=== PATIENT | female | born 1950 | race Caucasian/White ===

== ENCOUNTER 2017-07-02 09:53 | Day surgery (SDC) | payer MEDICARE, OTHER ==
[~2017-07-02] VITALS: Ht 152.4 cm; Wt 46.6 kg
[~2017-07-02 09:53] MED LIST: ALEN70; B Complete1 EACH PO; CALCAVITDA; CALCIUM 1,0001 EACH PO; CHOL10002; CLIMARA; ESTR.1TPBW; Fergon240 M1; Ferrous Fumara324 MG PO; GARCINIA CAMBO1 EACH PO; GAVILAX17 GM PO; Hair, Skin & N1 EACH PO; LATA.005SO BOTHEYES; LAXA CLEAR1530 GM PO; LISI20 PO; LISI5 PO; MAGOXI400 PO; Magnesium200 MG PO; Norco 10-325 T1 EACH PO; Nortriptyline H25 MG PO; OMEP20ER PO; Omeprazole20 M1 PO; PROACE100 PO; PROACE50 PO; Prinivil10 MG PO; TRIA80TC TOP; VITB100
[2017-07-04] MEDS ORDERED: Forteo2.4 ML (09:21)
[2017-07-04] MEDS ORDERED: OXYB5 PO (09:22)
[2018-05-16] MEDS ORDERED: OMEPRAZOLE MAGN20 MG PO (12:13)
[2018-05-16] MEDS ORDERED: Vitamin B Comple1 EA PO (12:13)
[2018-05-16] MEDS ORDERED: NAPR500 PO (12:15)
[2018-05-16] MEDS ORDERED: Estradiol1 EAC5 TD (12:19)
[2018-05-16] MEDS ORDERED: Forteo2.4 ML SC (12:21)
[2018-05-16] MEDS ORDERED: TUMS PO (12:23)
[2018-05-17] MEDS ORDERED: RHOPRESSA2.5 ML DT (11:47)
== END 2017-07-02 12:45 | disposition home or self-care (01) ==
LOC: ORSCSDS 09:53
PROVIDERS: Internal Medicine Gastroenterology
PROC: 0DB68ZX Excision of Stomach, Via Natural or Artificial Opening Endoscopic, Diagnostic (ICD-10-PCS; principal; 2017-07-02 11:15)
PROC: 0DB88ZX Excision of Small Intestine, Via Natural or Artificial Opening Endoscopic, Diagnostic (ICD-10-PCS; principal; 2017-07-02 11:15)
PROC: 0DBM8ZX Excision of Descending Colon, Via Natural or Artificial Opening Endoscopic, Diagnostic (ICD-10-PCS; principal; 2017-07-02 11:15)
PROC: 0D757ZZ Dilation of Esophagus, Via Natural or Artificial Opening (ICD-10-PCS; principal; 2017-07-02 11:15)
PROC: 0DB58ZX Excision of Esophagus, Via Natural or Artificial Opening Endoscopic, Diagnostic (ICD-10-PCS; principal; 2017-07-02 11:15)
DX: R13.14 Dysphagia, pharyngoesophageal phase (principal); K21.9 Gastro-esophageal reflux disease without esophagitis; K22.2 Esophageal obstruction; K31.7 Polyp of stomach and duodenum; Z12.11 Encounter for screening for malignant neoplasm of colon; D12.4 Benign neoplasm of descending colon; K57.30 Diverticulosis of large intestine without perforation or abscess without bleeding; Z87.891 Personal history of nicotine dependence; I10 Essential (primary) hypertension; Z79.899 Other long term (current) drug therapy
CPT/HCPCS: 88305; J7120

== ENCOUNTER 2017-07-10 06:29 | Day surgery (SDC) | payer MEDICARE, OTHER ==
[~2017-07-10] VITALS: Ht 157.5 cm; Wt 48.1 kg
[~2017-07-10 06:29] MED LIST changes: +Forteo2.4 ML; +OXYB5 PO
[2018-05-16] MEDS ORDERED: OMEPRAZOLE MAGN20 MG PO (12:13)
[2018-05-16] MEDS ORDERED: Vitamin B Comple1 EA PO (12:13)
[2018-05-16] MEDS ORDERED: NAPR500 PO (12:15)
[2018-05-16] MEDS ORDERED: Estradiol1 EAC5 TD (12:19)
[2018-05-16] MEDS ORDERED: Forteo2.4 ML SC (12:21)
[2018-05-16] MEDS ORDERED: TUMS PO (12:23)
[2018-05-17] MEDS ORDERED: RHOPRESSA2.5 ML DT (11:47)
== END 2017-07-10 08:57 | disposition home or self-care (01) ==
LOC: ORSCSDS 06:29
PROVIDERS: Ophthalmology
PROC: 08RK3JZ Replacement of Left Lens with Synthetic Substitute, Percutaneous Approach (ICD-10-PCS; principal; 2017-07-10 08:00)
DX: H25.12 Age-related nuclear cataract, left eye (principal)
CPT/HCPCS: J2250; J3010; V2632

== ENCOUNTER 2018-10-04 06:24 | Day surgery (SDC) | payer MEDICARE, OTHER ==
[~2018-10-04] VITALS: Ht 152.4 cm; Wt 53.5 kg
[~2018-10-04 06:24] MED LIST changes: +B Complex #11 EACH PO; +Calcium +D & M1 EACH PO; +Estradiol1 EAC5 TD; +Forteo2.4 ML SC; +MIRALAX17 GM PO; +NAPR500 PO; +NORT25 PO; +Naprosyn500 MG PO; +OMEPRAZOLE MAGN20 MG PO; +RHOPRESSA2.5 ML DT; +TUMS PO; +Vitamin B Comple1 EA PO
--- NOTE | 2018-10-04 07:38 | NUR ---
10/04/18 0738 Cipriano Duong 1ST IV ATTEMPT UNSUCCESSFUL, ORSC.BDK 2ND IV ATTEMPT UNSUCCESSFUL, ORSC.AXE 3RD IV ATTEMPT IN LAC SUCCESSFUL, ORSC.AXE
--- NOTE | 2018-10-04 08:53 | NUR ---
10/04/18 0853 Dorothea Jason PT TRANSFERRED MARC, SID INTO RECLINER. PT DENIES PAIN AND NAUSEA AT THIS TIME. PT TOLERATING APPLE JUICE WELL AND DENIES PO SNACKS. RN UPDATED SHANTA OF PT STATUS IN WAITING ROOM. SHANTA CHOOSES TO WAIT IN WAITING ROOM. PT AWARE AND STATES HE "DOESN'T LIKE HOSPITALS." ICE AND ELEVATION IMPLEMENTED IN SDU.
== END 2018-10-04 09:24 | disposition home or self-care (01) ==
LOC: ORSCSDS 06:24
PROVIDERS: Podiatrist Foot & Ankle Surgery
PROC: 0SPQ04Z Removal of Internal Fixation Device from Left Toe Phalangeal Joint, Open Approach (ICD-10-PCS; principal; 2018-10-04 07:30)
PROC: 0QSP04Z Reposition Left Metatarsal with Internal Fixation Device, Open Approach (ICD-10-PCS; principal; 2018-10-04 07:30)
PROC: 0SQQ0ZZ Repair Left Toe Phalangeal Joint, Open Approach (ICD-10-PCS; principal; 2018-10-04 07:30)
DX: M21.962 Unspecified acquired deformity of left lower leg (principal); T84.84XA Pain due to internal orthopedic prosthetic devices, implants and grafts, initial encounter; I10 Essential (primary) hypertension; Z87.891 Personal history of nicotine dependence; Z79.899 Other long term (current) drug therapy
CPT/HCPCS: C1713; C1769; J0330; J0690; J1100; J2250; J2405; J2704; J2765; J3010; J7120

== ENCOUNTER → 2019-04-01 | Outpatient (CLI) | payer MEDICARE, OTHER ==
[2019-04-01 10:23] LABS: Alanine Aminotransfer (ALT/SGP 16 U/L (12-78); Albumin, Blood 3.8 g/dL (3.4-5.0); Albumin/Globulin Ratio 1.3 (0.8-1.8); Alk Phos 82 U/L (50-136); Anion Gap 5 mmol/L (6-16); Aspartate Aminotrans (AST/SGOT 9 U/L (12-37); Bilirubin, Total 0.2 mg/dL (0.1-1.0); Blood Urea Nitrogen 27 mg/dL (8-24); Bun/Creatinine Ratio 39.9 (12.0-20.0); CO2, Blood 28 mmol/L (21-32); Calcium, Blood 8.8 mg/dL (8.5-10.1); Chloride, Blood 111 mmol/L (98-108); Creatinine, Blood 0.68 mg/dL (0.40-1.00); Globulin, Blood 2.9 g/dL (2.2-4.0); Glomerular Filtration Rate >60 (60-); Glucose, Blood 101 mg/dL (70-99); Potassium, Blood 4.2 mmol/L (3.5-5.5); Sodium, Blood 144 mmol/L (136-145); Total Protein, Blood 6.7 g/dL (6.4-8.2)
== END | disposition home or self-care (01) ==
LOC: LAB EV 09:49 → LAB SHORT 09:49
PROVIDERS: Internal Medicine Hematology & Oncology
DX: M85.80 Other specified disorders of bone density and structure, unspecified site (principal); R53.83 Other fatigue
CPT/HCPCS: 80053

== ENCOUNTER 2020-03-17 10:05 | Emergency (ER) | payer MEDICARE, OTHER ==
[~2020-03-17] VITALS: Ht 152.4 cm; Wt 53.1 kg
== END 2020-03-17 11:40 | disposition home or self-care (01) ==
LOC: ER 10:05
DX: M25.551 Pain in right hip (principal); G89.29 Other chronic pain; I10 Essential (primary) hypertension; K21.9 Gastro-esophageal reflux disease without esophagitis; Z88.6 Allergy status to analgesic agent; Z88.8 Allergy status to other drugs, medicaments and biological substances; Z79.899 Other long term (current) drug therapy; Z87.891 Personal history of nicotine dependence; W01.0XXA Fall on same level from slipping, tripping and stumbling without subsequent striking against object, initial encounter
CPT/HCPCS: 73502; 99283-25

== ENCOUNTER → 2020-03-31 | Outpatient (CLI) | payer MEDICARE, OTHER ==
[2020-03-31 10:15] LABS: Alanine Aminotransfer (ALT/SGP 21 U/L (12-78); Albumin, Blood 3.8 g/dL (3.4-5.0); Albumin/Globulin Ratio 1.3 (0.8-1.8); Alk Phos 82 U/L (50-136); Anion Gap 9 mmol/L (6-16); Aspartate Aminotrans (AST/SGOT 11 U/L (12-37); Bilirubin, Total 0.2 mg/dL (0.1-1.0); Blood Urea Nitrogen 27 mg/dL (8-24); Bun/Creatinine Ratio 44.6 (12.0-20.0); CO2, Blood 22 mmol/L (21-32); Calcium, Blood 8.8 mg/dL (8.5-10.1); Chloride, Blood 112 mmol/L (98-108); Creatinine, Blood 0.61 mg/dL (0.40-1.00); Globulin, Blood 2.9 g/dL (2.2-4.0); Glomerular Filtration Rate >60 (60-); Glucose, Blood 112 mg/dL (70-99); Phosphorus, Blood 3.3 mg/dL (2.5-4.9); Sodium, Blood 143 mmol/L (136-145); Total Protein, Blood 6.7 g/dL (6.4-8.2)
== END ==
LOC: OLS 09:44 → LAB SHORT 09:44
PROVIDERS: Internal Medicine Hematology & Oncology
DX: M81.8 Other osteoporosis without current pathological fracture (principal)
CPT/HCPCS: 80053; 84100

== ENCOUNTER → 2021-04-01 | Outpatient (CLI) | payer MEDICARE, OTHER ==
[2021-04-01 11:09] LABS: BASOPHILS ABSOLUTE AUTO 0.04 K/mm3 (0.00-0.23); BASOPHILS PERCENT AUTO 1 % (0-2); EOSINOPHILS ABSOLUTE AUTO 0.26 K/mm3 (0.00-0.68); EOSINOPHILS PERCENT AUTO 4 % (0-6); Hematocrit 34.1 % (33.0-51.0); IMMATURE GRAN ABSOLUTE AUTO 0.03 K/mm3 (0.00-0.10); IMMATURE GRAN PERCENT AUTO 1 % (0-1); LYMPHOCYTES ABSOLUTE AUTO 1.55 K/mm3 (0.84-5.20); LYMPHOCYTES PERCENT AUTO 26 % (21-46); MONOCYTES ABSOLUTE AUTO 0.56 K/mm3 (0.16-1.47); MONOCYTES PERCENT AUTO 9 % (4-13); Mean Corpuscular HGB 30.3 pg (26.0-34.0); Mean Corpuscular HGB Conc 32.3 g/dL (31.5-36.5); Mean Corpuscular Volume 94 fL (80-100); Mean Platelet Volume 10.7 fL (9.1-12.4); NEUTROPHILS ABSOLUTE AUTO 3.61 K/mm3 (1.96-9.15); NEUTROPHILS PERCENT AUTO 60 % (41-73); Platelet Count 254 K/mm3 (150-400); RDW Coefficient Variation 12.6 % (11.7-14.2); RDW Standard Deviation 43.2 fL (35.1-46.3); Red Blood Cell Count 3.63 M/mm3 (3.80-5.20); White Blood Cell Count 6.05 K/mm3 (4.00-11.30)
[2021-04-01 11:46] LABS: Alanine Aminotransfer (ALT/SGP 18 U/L (12-78); Albumin, Blood 3.4 g/dL (3.4-5.0); Albumin/Globulin Ratio 1.1 (0.8-1.8); Alk Phos 77 U/L (50-136); Anion Gap 5 mmol/L (6-16); Aspartate Aminotrans (AST/SGOT 16 U/L (12-37); Bilirubin, Total 0.2 mg/dL (0.1-1.0); Blood Urea Nitrogen 25 mg/dL (8-24); Bun/Creatinine Ratio 32.9 (12.0-20.0); CO2, Blood 27 mmol/L (21-32); Calcium, Blood 8.7 mg/dL (8.5-10.1); Chloride, Blood 110 mmol/L (98-108); Creatinine, Blood 0.76 mg/dL (0.40-1.00); Glomerular Filtration Rate >60 (60-); Glucose, Blood 95 mg/dL (70-99); Phosphorus, Blood 3.2 mg/dL (2.5-4.9); Potassium, Blood 4.3 mmol/L (3.5-5.5); Sodium, Blood 142 mmol/L (136-145); Total Protein, Blood 6.4 g/dL (6.4-8.2)
== END | disposition home or self-care (01) ==
LOC: LAB 10:54 → LAB SHORT 10:54
PROVIDERS: Internal Medicine Hematology & Oncology
DX: M81.8 Other osteoporosis without current pathological fracture (principal); R53.83 Other fatigue
CPT/HCPCS: 80053; 84100; 85025

== ENCOUNTER 2021-08-19 10:59 | Day surgery (SDC) | payer MEDICARE, OTHER ==
[~2021-08-19] VITALS: Ht 152.4 cm; Wt 52.7 kg
[2021-08-19] MEDS ORDERED: Acetaminophen650 M1 (11:23)
[2021-08-19] MEDS ORDERED: IBUP400 (11:24)
[2021-08-19] MEDS ORDERED: LATANOPROST2.5 M3 (11:24)
== END 2021-08-19 12:57 | disposition home or self-care (01) ==
LOC: ORSCSDS 10:59
DX: R13.10 Dysphagia, unspecified (principal); K22.2 Esophageal obstruction; K44.9 Diaphragmatic hernia without obstruction or gangrene; I10 Essential (primary) hypertension; Z87.891 Personal history of nicotine dependence; Z79.899 Other long term (current) drug therapy
CPT/HCPCS: J2704; J7120

== ENCOUNTER 2021-11-16 07:42 | Day surgery (SDC) | payer MEDICARE, OTHER ==
[~2021-11-16] VITALS: Ht 152.4 cm; Wt 52.0 kg
[~2021-11-16 07:42] MED LIST changes: +Acetaminophen650 M1 PO; +IBUP400 PO; +LATANOPROST2.5 M3 BOTHEYES; +MIRALAX17 GM
[2021-11-16 09:17] LABS: Albumin, Blood 3.7 g/dL (3.4-5.0); Albumin/Globulin Ratio 1.2 (0.8-1.8); Bilirubin, Total 0.2 mg/dL (0.1-1.0); Bun/Creatinine Ratio 47.2 (12.0-20.0); Calcium, Blood 8.9 mg/dL (8.5-10.1); Creatinine, Blood 0.45 mg/dL (0.40-1.00); Globulin, Blood 3.2 g/dL (2.2-4.0); Potassium, Blood 3.9 mmol/L (3.5-5.5); Total Protein, Blood 6.9 g/dL (6.4-8.2)
--- NOTE | 2021-11-16 11:50 | NUR ---
PT AXOX4, ABLE TO SIT UP IN BED AND WALK TO BATHROOM WITH STEADY GAIT. PT REQUESTED AND TOLERATING PO FLUIDS. PT HAS FOUR INCISION SITES ON ABDOMEN THAT ARE ALL COVERED WITH 2X2 GAUZE AND WINDOW TAPE. ALL INCISION SITES ARE CLEAN, DRY AND INTACT. NO DRAINAGE, SWELLING, REDNESS, INFLAMMATION NOTED.
--- NOTE | 2021-11-16 12:07 | NUR ---
Patient up to Ambulate independently. Gait steady. Discharge instructions reviewed with patient. Patient verbalizes understanding. Copy given to patient to take home. Patient States Post-Procedure ride home has been arranged. Discharged via wheelchair to private car for ride home. Dressings to procedure site clean, dry, intact with no visible drainage, swelling, erythema or bruising noted. ALL BELONGINGS RETURNED TO PATIENT.
--- NOTE | 2021-11-17 13:40 | NUR ---
11/17/21 1340 Crissy TrentCATKRISTIE: EDIT CHART.
== END 2021-11-16 23:41 | disposition home or self-care (01) ==
LOC: ORSCMMR 07:42 → ORD 09:15 → ORSCMMR 23:41
PROVIDERS: Surgery
PROC: 0FT44ZZ Resection of Gallbladder, Percutaneous Endoscopic Approach (ICD-10-PCS; principal; 2021-11-16 09:15)
DX: K80.10 Calculus of gallbladder with chronic cholecystitis without obstruction (principal); I10 Essential (primary) hypertension; Z87.891 Personal history of nicotine dependence; K21.9 Gastro-esophageal reflux disease without esophagitis; Z79.899 Other long term (current) drug therapy; Z85.3 Personal history of malignant neoplasm of breast
CPT/HCPCS: 80053; 88304; J0690; J1100; J2250; J2370; J2405; J2704; J2710; J2765; J3010; J7120

== ENCOUNTER → 2022-03-07 | Outpatient (CLI) | payer MEDICARE, OTHER | END | disposition home or self-care (01) | LOC: LAB SHORT 11:28 → LAB 11:28 | DX: M19.90 Unspecified osteoarthritis, unspecified site (principal); R53.81 Other malaise; R53.83 Other fatigue ==

== ENCOUNTER → 2022-07-12 | Outpatient (CLI) | payer MEDICARE, OTHER ==
[~2022-07-12] MED LIST changes: +ASPI325 PO; +FERROUS GLUCON324 M2 PO; +OXYC5 PO; +TRAM50 PO
[2022-07-12 13:42] LABS: Albumin, Blood 2.4 g/dL (3.4-5.0); Albumin/Globulin Ratio 0.6 (0.8-1.8); Bilirubin, Direct 0.2 mg/dL (0.0-0.3); Bilirubin, Indirect 0.2 mg/dL (0.1-0.7); Bilirubin, Total 0.4 mg/dL (0.1-1.0); Bun/Creatinine Ratio 26.2 (12.0-20.0); Calcium, Blood 8.9 mg/dL (8.5-10.1); Creatinine, Blood 0.72 mg/dL (0.40-1.00); Globulin, Blood 3.8 g/dL (2.2-4.0); Potassium, Blood 3.9 mmol/L (3.5-5.5); Total Protein, Blood 6.2 g/dL (6.4-8.2)
[2022-07-12 13:44] LABS: International Normalized Ratio 1.11; Prothrombin Time Results 11.6 Sec (9.7-11.5)
[2022-07-12 13:59] LABS: Percent Saturation 5.6 % (15.0-50.0)
== END | disposition home or self-care (01) ==
LOC: LAB SHORT 12:00
PROVIDERS: Internal Medicine Hematology & Oncology
DX: D64.9 Anemia, unspecified (principal); E53.8 Deficiency of other specified B group vitamins; R06.02 Shortness of breath; R07.9 Chest pain, unspecified
CPT/HCPCS: 80053; 82248; 82607; 82728; 82746; 83540; 83550; 85610

== ENCOUNTER 2022-08-07 14:05 | Emergency (ER) | payer MEDICARE, OTHER ==
[~2022-08-07] VITALS: Ht 152.4 cm; Wt 45.4 kg
[2022-08-07 15:36] LABS: BASOPHILS PERCENT AUTO 1 % (0-2); EOSINOPHILS ABSOLUTE AUTO 1.36 K/mm3 (0.00-0.68); EOSINOPHILS PERCENT AUTO 10 % (0-6); Hematocrit 30.8 % (33.0-51.0); Hemoglobin 9.8 g/dL (11.5-16.0); IMMATURE GRAN ABSOLUTE AUTO 0.57 K/mm3 (0.00-0.10); IMMATURE GRAN PERCENT AUTO 4 % (0-1); LYMPHOCYTES ABSOLUTE AUTO 2.23 K/mm3 (0.84-5.20); LYMPHOCYTES PERCENT AUTO 16 % (21-46); MONOCYTES ABSOLUTE AUTO 1.54 K/mm3 (0.16-1.47); MONOCYTES PERCENT AUTO 11 % (4-13); Mean Corpuscular HGB 28.9 pg (26.0-34.0); Mean Corpuscular HGB Conc 31.8 g/dL (31.5-36.5); Mean Corpuscular Volume 91 fL (80-100); Mean Platelet Volume 9.3 fL (9.1-12.4); NEUTROPHILS ABSOLUTE AUTO 8.53 K/mm3 (1.96-9.15); NEUTROPHILS PERCENT AUTO 60 % (41-73); Platelet Count 708 K/mm3 (150-400); RDW Coefficient Variation 17.1 % (11.7-14.2); RDW Standard Deviation 55.8 fL (35.1-46.3); Red Blood Cell Count 3.39 M/mm3 (3.80-5.20); White Blood Cell Count 14.33 K/mm3 (4.00-11.30)
[2022-08-07 15:52] LABS: Albumin, Blood 2.8 g/dL (3.4-5.0); Albumin/Globulin Ratio 0.6 (0.8-1.8); Bilirubin, Total 0.3 mg/dL (0.1-1.0); Calcium, Blood 9.1 mg/dL (8.5-10.1); Creatinine, Blood 0.58 mg/dL (0.40-1.00); Globulin, Blood 4.4 g/dL (2.2-4.0); Potassium, Blood 4.4 mmol/L (3.5-5.5); Total Protein, Blood 7.2 g/dL (6.4-8.2)
[2022-08-07 17:01] LABS: Base Excess Venous -2.8 mmol/L; Bicarbonate Venous 22.3 mmol/L (24.0-30.0); PCO2 Venous 35.9 mmHg (38-42); PO2 Venous 78.8 mmHg (38-42)
[2022-08-07 18:44] LABS: Influenza A, PCR NEGATIVE (NEGATIVE); Influenza B, PCR NEGATIVE (NEGATIVE); Resp Syncytial Virus, PCR NEGATIVE (NEGATIVE); SARS-Cov-2 (COVID-19) PCR, MMC NEGATIVE (NEGATIVE)
== END 2022-08-07 20:17 | disposition home or self-care (01) ==
LOC: ER 14:05
PROVIDERS: Student in an Organized Health Care Education/Training Program
DX: R00.2 Palpitations (principal); K21.9 Gastro-esophageal reflux disease without esophagitis; I10 Essential (primary) hypertension; Z88.8 Allergy status to other drugs, medicaments and biological substances; Z79.82 Long term (current) use of aspirin; Z79.899 Other long term (current) drug therapy; Z87.891 Personal history of nicotine dependence; Z20.822 Contact with and (suspected) exposure to COVID-19
CPT/HCPCS: 0241U; 36415; 71046; 71275; 80053; 82803; 83690; 84484; 85025; 93005; 93010; J2270; J2405; Q9967

== ENCOUNTER → 2022-11-28 | Outpatient (CLI) | payer MEDICARE, OTHER ==
[2022-11-28 19:36] LABS: Percent Saturation 46.4 % (15.0-50.0)
== END | disposition home or self-care (01) ==
LOC: LAB 13:57 → LAB SHORT 13:57
PROVIDERS: Internal Medicine Hematology & Oncology
DX: D50.0 Iron deficiency anemia secondary to blood loss (chronic) (principal)
CPT/HCPCS: 82728; 83540; 83550

== ENCOUNTER 2023-12-04 13:03 | Day surgery (SDC) | payer MEDICARE, OTHER ==
[~2023-12-04] VITALS: Ht 152.4 cm; Wt 49.0 kg
[~2023-12-04 13:03] MED LIST changes: +Lactated Ringer's 1,000 ML IV ONE; +propofoL 50 ML IV ONE
[2023-12-04] MEDS ORDERED: NORT25 (13:14)
[2023-12-04] MEDS ORDERED: DILTIAZEM 24HR120 M2 (13:14)
[2023-12-04] MEDS ORDERED: Lactated Ringer's 1,000 ML IV ONE (14:55)
--- NOTE | 2023-12-04 15:34 | NUR ---
12/04/23 1534 NADIRA WHEELER IV SITE INFLTD AT START OF PROCEDURE.NEW IV,1 ATTEMPT ECHO.
--- NOTE | 2023-12-04 16:22 | NUR ---
12/04/23 1622 Luann Corbin 1552: PATIENT REPORTED 4/10 PAIN IN ABDOMEN. PATIENT HAS TRIED PASSING GAS AFTER SUGGESTED BY THIS RN. PATIENT HAS USED THE RESTROOM AND TRIED TO PASS GAS. PATIENT WALKED TO RESTROOM SBA WITH RN TO HELP ALLEVIATE GAS PAINS. PATIENT REPORTS NO IMPROVEMENT IN SYMPTOMS AND STATES SHE HAS TO "TAKE GAS X IN ORDER FOR ANYTHING TO HAPPEN". 1555: CONSULTED DR GALVEZ ABOUT THE ABOVE AND THE INTERVENTIONS COMPLETED BY THE PATIENT TO TRY TO ALLEVIATE THE PAIN. PATIENT IS ASKING IF SHE CAN GET DRESSED AND GO HOME. PER DR GALVEZ PATIENT IS OK TO DISCHARGE HOME. PATIENT INSTRUCTED TO CALL THE OFFICE OR SEEK MEDICAL HELP IF PAIN DOES NOT IMPROVE/WORSENS.
[2023-12-04 16:24] VITALS: BP 126/83
== END 2023-12-04 16:16 | disposition home or self-care (01) ==
LOC: ORSCSDS 13:03
PROVIDERS: Internal Medicine Gastroenterology
PROC: 0DBN8ZX Excision of Sigmoid Colon, Via Natural or Artificial Opening Endoscopic, Diagnostic (ICD-10-PCS; principal; 2023-12-04 14:15)
PROC: 0DJ08ZZ Inspection of Upper Intestinal Tract, Via Natural or Artificial Opening Endoscopic (ICD-10-PCS; principal; 2023-12-04 14:15)
DX: Z12.11 Encounter for screening for malignant neoplasm of colon (principal); Z86.010 Personal history of colon polyps; R13.10 Dysphagia, unspecified; D12.5 Benign neoplasm of sigmoid colon; K57.30 Diverticulosis of large intestine without perforation or abscess without bleeding; K66.0 Peritoneal adhesions (postprocedural) (postinfection); Z79.899 Other long term (current) drug therapy
CPT/HCPCS: 88305; J2704; J7120

== ENCOUNTER → 2023-12-13 | Outpatient (CLI) | payer MEDICARE, OTHER ==
[~2023-12-13] MED LIST changes: +DILTIAZEM 24HR120 M2; -Lactated Ringer's 1,000 ML IV ONE; +NORT25; -propofoL 50 ML IV ONE
[2023-12-13 19:27] LABS: Percent Saturation 30.5 % (15.0-50.0)
== END | disposition home or self-care (01) ==
LOC: LAB SHORT 16:49 → LAB 16:49
PROVIDERS: Internal Medicine Hematology & Oncology
DX: D50.0 Iron deficiency anemia secondary to blood loss (chronic) (principal); D75.89 Other specified diseases of blood and blood-forming organs; E53.8 Deficiency of other specified B group vitamins
CPT/HCPCS: 82607; 82728; 83540; 83550